=== PATIENT | female | born 1935 | race Caucasian/White ===

== ENCOUNTER 2018-03-24 12:59 | Emergency (ER) | payer BC ==
[2018-03-24 13:09] VITALS: TEMP 97.9; BMI 24.7
--- NOTE | 2018-03-24 16:16 | PDOC ---
Attending Attestation - Resident Resident Name: SiddharthamonieyuliyaBrijesh - ED Attending Attestation I have performed the following: I have examined & evaluated the patient, The case was reviewed & discussed with the resident, I agree w/resident's findings & plan, Exceptions are as noted - HPI HPI: 03/24/18 16:54 82yo female with diffuse abd pain that woke her up this AM that radiated to her back. Decreased PO intake, did have a hard BM today, denies assoc n/v, denies urinary complaintas. States low back pain. No rashes. No vaginal complaints. States the pain resolved, she ate a banana and it started again this afternoon. Last normal BM was last night. No f/c. No cp/sob. No leg swelling. No other complaints. - Physicial Exam PE: 03/24/18 16:56 Gen: aaox3, nad, speaking in full sentences Heent: EOMI, mmm heart: +s1s2 reg lungs: cta b/l abd: soft, mild LUQ ttp, no rebound or guarding, no cva ttp, no rashes, nondistended ext: no c/c/e, no calf ttp, ambulates with a steady giat back: no midline ttp, no stepoffs or deformities - Medical Decision Making 03/24/18 16:16 I, Dr. Aiyana Zuniga, DO, attest that this document has been prepared under my direction and personally reviewed by me in its entirety. I further attest, that it accurately reflects all work, treatment, procedures and medical decision -making performed by me. 03/24/18 16:58 a/p: 82yo female with 2 episodes of diffuse abd pain that radiates to her back -concern for pancreatitis vs colitis vs ishcemic colitis vs biliary colic vs renal colic -will send labs, ua, ct abd/pelvis -will give ivf hydration -will monitor and reassess -pt is nontoxic in appearance 03/24/18 18:20 pt with a UTI on labs - will start iv abx 03/24/18 20:12 ct without acute pathology UTI will give oral abx for d/c pt is nontoxic in appearance Heart Score/ECG Review - ECG Intrepretation Comment:: 03/24/18 16:40 sinus peterson at 57, nl axis, nl interval, no acute st/t wave findings
[2018-03-24] MEDS ORDERED: ACETAMINOPHEN 1000 MG/100 ML VIAL (NON FORMULARY) IVPB ONE (16:18)
[2018-03-24] MEDS ORDERED: ACETAMINOPHEN INJECTION 100 ML IVPB ONE (16:22)
[2018-03-24] MEDS ORDERED: SODIUM CHLORIDE 0.9% 1000 ML INFUS.BAG IV ONE (16:42)
[2018-03-24 16:57] LABS: BASO % 0.5 % (0-2.0); EOS % 0.8 % (0-4.5); HEMATOCRIT 39.6 % (32.4-45.2); LYMPH % 33.4 % (8-40); MCH 29.8 pg (25.7-33.7); MCHC 32.8 g/dl (32.0-36.0); MONO % 8.3 % (3.8-10.2); PLATELET COUNT 189 K/MM3 (134-434); RBC 4.36 M/mm3 (3.60-5.2); RDW 13.8 % (11.6-15.6); WHITE BLOOD COUNT 6.3 K/mm3 (4.0-10.0)
[2018-03-24 17:24] LABS: URINE APPEARANCE CLEAR; URINE BILIRUBIN NEGATIVE (<2.0 mg/dL); URINE COLOR STRAW; URINE GLUCOSE (UA) NEGATIVE (NEGATIVE); URINE KETONE TRACE (NEGATIVE); URINE NITRITE NEGATIVE (NEGATIVE); URINE PROTEIN NEGATIVE (NEGATIVE); URINE UROBILINOGEN NEGATIVE mg/dL (0.2-1.0)
[2018-03-24 17:25] LABS: URINE LEUK ESTERASE 3+ (NEGATIVE)
[2018-03-24 17:27] LABS: EPI CELLS RARE /HPF (FEW)
[2018-03-24 17:32] LABS: ALBUMIN 3.5 g/dl (3.4-5.0); ANION GAP 7 MMOL/L (8-16); BILIRUBIN,TOTAL 0.6 mg/dL (0.2-1.0); BLOOD UREA NITROGEN 17 mg/dL (7-18); CALCIUM 8.9 mg/dL (8.5-10.1); CHLORIDE 107 mmol/L (98-107); CO2 28 mmol/L (21-32); CREATININE 0.9 mg/dL (0.55-1.02); GLUCOSE,RANDOM 81 mg/dL (74-106); POTASSIUM 4.3 mmol/L (3.5-5.1); SGOT/AST 23 U/L (15-37); SGPT/ALT 21 U/L (12-78); SODIUM 142 mmol/L (136-145); TOT PROT 6.8 g/dl (6.4-8.2)
[2018-03-24 17:35] LABS: ALK PHOS 63 U/L (45-117)
[2018-03-24 17:42] LABS: MAGNESIUM 2.1 mg/dL (1.8-2.4)
--- NOTE | 2018-03-24 17:42 | PDOC ---
History of Present Illness - General Chief Complaint: Pain Stated Complaint: PCP SENT/STOMACH AND BACK PAIN Time Seen by Provider: 03/24/18 15:28 History Source: Patient Exam Limitations: No Limitations - History of Present Illness Initial Comments: 03/24/18 17:42 The patient is an 82F with a PMH of HLD who presents to the ER with complaints of abdominal pain. The patient states that she had a sudden onset sharp, diffuse , constant abdominal pain which radiates to her back without any exacerbating or alleviating factors. She denies fevers, dysuria, chills, vomiting but admits to mild nausea and SOB. She states this has never happened in the past. Past History - Past Medical History Allergies/Adverse Reactions: Allergies Allergy/AdvReac Type Severity Reaction Status Date / Time No Known Allergies Allergy Verified 05/25/14 21:20 Home Medications: Ambulatory Orders Ascorbic Acid [Vitamin C Oral Solution -] 0 mg PO DAILY 09/23/12 Cholecalciferol (Vitamin D3) [Vitamin D3] 0 unit PO DAILY 09/23/12 Cyanocobalamin [Vitamin B12 -] 0 mcg PO DAILY 09/23/12 Vitamin B Complex 1 each PO DAILY 09/23/12 Vitamin E Acid Succinate [Vitamin E] 0 unit PO DAILY 09/23/12 Aspirin Coated [Ecotrin -] 81 mg PO DAILY #0 tablet.ec 09/24/12 Unobtainable Home Med List 0 dose .ROUTE UTDICT 05/25/14 Atorvastatin Ca [Lipitor] 40 mg PO HS #30 tablet 05/26/14 Metoprolol Succinate [Toprol XL -] 25 mg PO DAILY #30 tab.sr.24h 05/26/14 Ranitidine [Zantac -] 150 mg PO DAILY #30 tablet 05/26/14 Cephalexin Monohydrate [Keflex -] 500 mg PO BID 7 Days #14 capsule 03/24/18 COPD: No Hypercholesterolemia: Yes - Immunization History Immunization Up to Date: Yes - Suicide/Smoking/Psychosocial Hx Smoking Status: No Smoking History: Never smoked Number of Cigarettes Smoked Daily: 0 Hx Alcohol Use: No Drug/Substance Use Hx: No Substance Use Type: None Review of Systems - Review of Systems Able to Perform ROS?: Yes Comments:: 03/24/18 18:01 GENERAL/CONSTITUTIONAL: No fever or chills. No weakness. HEAD, EYES, EARS, NOSE AND THROAT: No change in vision. No ear pain or discharge. No sore throat. CARDIOVASCULAR: No chest pain, palpitations, or lightheadedness. RESPIRATORY: Positive for shortness of breath. No cough, wheezing, or hemoptysis. GASTROINTESTINAL: Positive for nausea and abdominal pain. No vomiting, diarrhea , or constipation. GENITOURINARY: No dysuria, frequency, hematuria, or change in urination. MUSCULOSKELETAL: No joint or muscle swelling or pain. No neck or back pain. SKIN: No rash or lesions. NEUROLOGIC: No headache, numbness, tingling, focal weakness, loss of consciousness, or change in strength/sensation. ENDOCRINE: No increased thirst. No abnormal weight change. HEMATOLOGIC/LYMPHATIC: No anemia, easy bleeding, or history of blood clots. ALLERGIC/IMMUNOLOGIC: No hives or skin allergy. Is the patient limited Kazakh proficient: No *Physical Exam - Vital Signs Last Vital Signs Temp Pulse Resp BP Pulse Ox 97.9 F 74 18 152/67 100 03/24/18 13:06 03/24/18 13:06 03/24/18 13:06 03/24/18 13:06 03/24/18 13:06 - Physical Exam Comments: 03/24/18 18:10 GENERAL: Well developed, well nourished. Awake and alert. No acute distress. HEENT: Normocephalic, atraumatic. Hearing grossly normal. Moist mucous membranes. PERRLA, EOMI. No conjunctival pallor. Sclera are non-icteric. NECK: Supple. Full ROM. CARDIOVASCULAR: Regular rate and rhythm. No murmurs, rubs, or gallops. PULMONARY: No evidence of respiratory distress. Lungs clear to auscultation bilaterally. No wheezing, rales or rhonchi. ABDOMINAL: Soft. Diffusely tender, mostly in LUQ. Non-distended. No rebound or guarding. GENITOURINARY: No CVA tenderness bilaterally. MUSCULOSKELETAL: Normal range of motion at all joints. No bony deformities or tenderness. EXTREMITIES: No cyanosis. No clubbing. No edema. No calf tenderness or swelling. SKIN: Warm and dry. Normal capillary refill. No rashes. No jaundice. NEUROLOGICAL: Alert, awake, appropriate. Cranial nerves 2-12 intact. Normal speech. Gait is normal without ataxia. PSYCHIATRIC: Cooperative. Good eye contact. Appropriate mood and affect. Heart Score/ECG Review #1 ECG reviewed & interpreted by me at: 18:13 General ECG Interpretation: Sinus Rhythm, Normal Rate, Normal Intervals, No acute ischemic changes Compared to previous ECG there are: No significant change 03/24/18 18:13 Sinus peterson vent rate 55 MS 138 QRS 172 QTc 424 No STD or DIMAS No signs of acute ischemia ED Treatment Course - LABORATORY CBC & Chemistry Diagram: 03/24/18 16:35 03/24/18 16:35 - ADDITIONAL ORDERS Additional order review: Laboratory Results 03/24/18 03/24/18 03/24/18 17:10 16:35 16:35 Sodium 142 Potassium 4.3 Chloride 107 Carbon Dioxide 28 Anion Gap 7 L BUN 17 Creatinine 0.9 Creat Clearance w eGFR > 60 Random Glucose 81 Calcium 8.9 Total Bilirubin 0.6 AST 23 ALT 21 Alkaline Phosphatase 63 Creatine Kinase 118 Troponin I < 0.02 Total Protein 6.8 Albumin 3.5 Urine Color Straw Urine Appearance Clear Urine pH 6.0 Ur Specific [place] 1.011 Urine Protein Negative Urine Glucose (UA) Negative Urine Ketones Trace H Urine Blood Negative Urine Nitrite Negative Urine Bilirubin Negative Urine Urobilinogen Negative Ur Leukocyte Esterase 3+ H Urine WBC (Auto) 4 Urine RBC (Auto) <1 Ur Epithelial Cells Rare Anti-A Titer Cancelled Blood Type Cancelled Antibody Screen Cancelled 03/24/18 16:35 RBC 4.36 MCV 91.0 MCHC 32.8 RDW 13.8 MPV 9.0 Neutrophils % 57.0 Lymphocytes % 33.4 Monocytes % 8.3 Eosinophils % 0.8 Basophils % 0.5 - RADIOLOGY Radiology Studies Ordered: Category Date Time Status ABDOMEN & PELVIS CT W/O CONTR [CT] Stat CT Scan 03/24/18 16:17 Ordered CHEST X-RAY PORTABLE* [RAD] Stat Radiology 03/24/18 16:17 Completed - Medications Given in the ED: ED Medications Discontinued Medications Generic Name Dose Route Start Last Admin Trade Name Freq PRN Reason Stop Dose Admin Acetaminophen 1,000 mg 03/24/18 16:18 03/24/18 17:22 Ofirmev Injection - IVPB 03/24/18 16:19 1,000 mg ONCE ONE Administration Sodium Chloride 1,000 ml 03/24/18 16:42 03/24/18 17:22 Normal Saline - IV 03/24/18 16:43 1,000 ml ONCE ONE Administration Medical Decision Making - Medical Decision Making 03/24/18 18:13 The patient is an 82F with a PMH of HLD who presents to the ER with complaints of abdominal pain. UA indicates UTI. Giving ceftriaxone. Pending CT to r/o nephric abscess vs other abdominal pathology. 03/24/18 18:58 I have endorsed the patient to Dr. Tatum for further care. *DC/Admit/Observation/Transfer Diagnosis at time of Disposition: UTI (urinary tract infection) - Discharge Dispostion Disposition: HOME Condition at time of disposition: Stable - Prescriptions Prescriptions: Cephalexin Monohydrate [Keflex -] 500 mg PO BID 7 Days #14 capsule - Referrals Referrals: Beto Gomez [Non Staff, Medical] - - Patient Instructions Printed Discharge Instructions: DI for Urinary Tract Infection (UTI) Additional Instructions: You were seen today in the Emergency Department for a urinary tract infection. You were given one dose of antibiotics here and prescribed antibiotics to the pharmacy that you specified. Please review the handouts provided at discharge. Please follow up with your primary care physician within the next 1-3 days. Return to the Emergency Department if you develop fevers, worsening symptoms, or new concerning symptoms. - Post Discharge Activity
[2018-03-24] MEDS ORDERED: CEFTRIAXONE 1,000 MG in DEXTROSE 5%-WATER - 50 ML IVPB ONE (17:48)
[2018-03-24] MEDS ORDERED: CEFTRIAXONE 1 GM/50 ML BAG ONE (18:54)
--- NOTE | 2018-03-24 19:05 | PDOC ---
*Physical Exam - Vital Signs Last Vital Signs Temp Pulse Resp BP Pulse Ox 97.9 F 74 18 152/67 100 03/24/18 13:06 03/24/18 13:06 03/24/18 13:06 03/24/18 13:06 03/24/18 13:06 - Physical Exam Comments: GENERAL: Awake, alert, and fully oriented, in no acute distress HEAD: No signs of trauma, normocephalic, atraumatic EYES: PERRL, EOMI, sclera anicteric, conjunctiva clear ENT: Hearing grossly normal, nares patent, oropharynx clear without exudates. Moist mucos NECK: Normal ROM, supple, no lymphadenopathy LUNGS: No distress, speaks full sentences, clear to auscultation bilaterally HEART:Regular rate and rhythm, normal S1 and S2, no murmurs appreciated, peripheral pulses normal and equal bilaterally ABDOMEN: Soft, mild diffuse TTP without rebound or guarding EXTREMITIES : Normal inspection, Normal range of motion, no edema. No clubbing or cyanosis NEUROLOGICAL: Cranial nerves II through XII grossly intact. Normal speech, no focal sensorimotor deficits SKIN: Warm, Dry, normal turgor, no rashes or lesions noted 03/24/18 19:10 ED Treatment Course - LABORATORY CBC & Chemistry Diagram: 03/24/18 16:35 03/24/18 16:35 - ADDITIONAL ORDERS Additional order review: Laboratory Results 03/24/18 03/24/18 03/24/18 17:10 16:53 16:35 Sodium Potassium Chloride Carbon Dioxide Anion Gap BUN Creatinine Creat Clearance w eGFR Random Glucose Lactic Acid 0.9 Calcium Magnesium 2.1 Total Bilirubin AST ALT Alkaline Phosphatase Creatine Kinase Troponin I Total Protein Albumin Lipase 51 L Urine Color Straw Urine Appearance Clear Urine pH 6.0 Ur Specific [place] 1.011 Urine Protein Negative Urine Glucose (UA) Negative Urine Ketones Trace H Urine Blood Negative Urine Nitrite Negative Urine Bilirubin Negative Urine Urobilinogen Negative Ur Leukocyte Esterase 3+ H Urine WBC (Auto) 4 Urine RBC (Auto) <1 Ur Epithelial Cells Rare Anti-A Titer Blood Type Antibody Screen 03/24/18 03/24/18 16:35 16:35 Sodium 142 Potassium 4.3 Chloride 107 Carbon Dioxide 28 Anion Gap 7 L BUN 17 Creatinine 0.9 Creat Clearance w eGFR > 60 Random Glucose 81 Lactic Acid Calcium 8.9 Magnesium Total Bilirubin 0.6 AST 23 ALT 21 Alkaline Phosphatase 63 Creatine Kinase 118 Troponin I < 0.02 Total Protein 6.8 Albumin 3.5 Lipase Urine Color Urine Appearance Urine pH Ur Specific [place] Urine Protein Urine Glucose (UA) Urine Ketones Urine Blood Urine Nitrite Urine Bilirubin Urine Urobilinogen Ur Leukocyte Esterase Urine WBC (Auto) Urine RBC (Auto) Ur Epithelial Cells Anti-A Titer Cancelled Blood Type Cancelled Antibody Screen Cancelled 03/24/18 16:35 RBC 4.36 MCV 91.0 MCHC 32.8 RDW 13.8 MPV 9.0 Neutrophils % 57.0 Lymphocytes % 33.4 Monocytes % 8.3 Eosinophils % 0.8 Basophils % 0.5 - Medications Given in the ED: ED Medications Discontinued Medications Generic Name Dose Route Start Last Admin Trade Name Freq PRN Reason Stop Dose Admin Acetaminophen 1,000 mg 03/24/18 16:18 03/24/18 17:22 Ofirmev Injection - IVPB 03/24/18 16:19 1,000 mg ONCE ONE Administration Ceftriaxone Sodium 1,000 mg/ 50 mls @ 100 mls/hr 03/24/18 17:48 03/24/18 19: 01 Dextrose IVPB 03/24/18 18:17 100 mls/hr ONCE ONE Administration Sodium Chloride 1,000 ml 03/24/18 16:42 03/24/18 17:22 Normal Saline - IV 03/24/18 16:43 1,000 ml ONCE ONE Administration Medical Decision Making - Medical Decision Making I have assumed care of the patient from Dr. Levine, who has discussed the clinical presentation, work-up, and ED course thus far. I have reviewed the patients medical record and ED course and agree with all aspects of care thus far. ED Course Patient with UA significant for UTI, LE 3+. S/p Ceftriaxone IV once Dispo pending CT 03/24/18 19:04 CT Abdomen & Pelvis without evidence of acute pathology Plan for DC w/ Keflex 500mg PO BID for 7 days and PCP f/u Plan discussed with patient who is in agreement and verbalized understanding Dispo: home w/ PCP f/u 03/24/18 20:20 *DC/Admit/Observation/Transfer Diagnosis at time of Disposition: UTI (urinary tract infection) Qualifiers: Urinary tract infection type: acute cystitis Hematuria presence: without hematuria Qualified Code(s): N30.00 - Acute cystitis without hematuria - Discharge Dispostion Disposition: HOME Condition at time of disposition: Stable Decision to Admit order: No - Prescriptions Prescriptions: Cephalexin Monohydrate [Keflex -] 500 mg PO BID 7 Days #14 capsule - Referrals Referrals: Beto Gomez [Non Staff, Medical] - - Patient Instructions Printed Discharge Instructions: DI for Urinary Tract Infection (UTI) Additional Instructions: You were seen today in the Emergency Department for a urinary tract infection. You were given one dose of antibiotics here and prescribed antibiotics to the pharmacy that you specified. Please review the handouts provided at discharge. Please follow up with your primary care physician within the next 1-3 days. Return to the Emergency Department if you develop fevers, worsening symptoms, or new concerning symptoms. - Post Discharge Activity
[2018-03-24 21:47] VITALS: BP 132/68; PULSE 76
--- NOTE | 2018-03-25 15:40 | EKG ---
Test Reason : Blood Pressure : / mmHG Vent. Rate : 057 BPM Atrial Rate : 057 BPM P-R Int : 138 ms QRS Dur : 072 ms QT Int : 436 ms P-R-T Axes : 047 054 061 degrees QTc Int : 424 ms SINUS BRADYCARDIA OTHERWISE NORMAL ECG WHEN COMPARED WITH ECG OF 25-MAY-2014 21:44, ABERRANT CONDUCTION IS NO LONGER PRESENT Confirmed by AYSHA BUSTILLO MD ([id number]) on 03/25/2018 3:40:08 PM Referred By: Confirmed By:AYSHA BUSTILLO MD
== END 2018-03-24 20:33 | disposition home or self-care (01) ==
LOC: JER 12:59
PROC: 3E0337Z Introduction of Electrolytic and Water Balance Substance into Peripheral Vein, Percutaneous Approach (ICD-10-PCS; principal; 2018-03-24)
PROC: 3E033NZ Introduction of Analgesics, Hypnotics, Sedatives into Peripheral Vein, Percutaneous Approach (ICD-10-PCS; 2018-03-24)
PROC: 3E03329 Introduction of Other Anti-infective into Peripheral Vein, Percutaneous Approach (ICD-10-PCS; 2018-03-24)
DX: N30.00 Acute cystitis without hematuria (principal)
CPT/HCPCS: 36415; 71045-TC-FY; 74176-TC; 80053; 81003; 81015; 82550; 83605; 83690; 83735; 84484; 85025; 87086; 93005; 93010; 96365; 96375; 99283-25; J0131; J7030

== ENCOUNTER 2019-01-18 12:54 | Emergency (ER) | payer BC ==
[2019-01-18 13:10] VITALS: BP 126/75; PULSE 90; TEMP 97.8; BMI 23.8
--- NOTE | 2019-01-18 13:35 | PDOC ---
History of Present Illness - General Chief Complaint: Pain, Acute Stated Complaint: LT SHOULDER PAIN Time Seen by Provider: 01/18/19 13:29 History Source: Patient Exam Limitations: No Limitations - History of Present Illness Initial Comments: 01/18/19 13:36 on and off for months and pain is progressively worsened since that time. States helps care for 1-year-old grandchildren and pain is progressively worsened since they have gotten bigger. Was concerned had some problems with the bones and saw her PMD, Dr. Travis who sent her to the emergency department for x-rays. Patient denies any significant trAmma or exercise changes. Denies fever, swelling, or any neurologic changes. Has taken ibuprofen With good resolved 01/18/19 14:24 01/18/19 14:26 Occurred: reports: other Severity: reports: mild, moderate Pain Location: reports: pelvis (and left hip), upper extremity (left posterior shoulder ) Loss of Consciousness: no loss of consciousness Associated Symptoms (Fall): denies symptoms Past History - Travel Traveled outside of the country in the last 30 days: No Close contact w/someone who was outside of country & ill: No - Past Medical History Allergies/Adverse Reactions: Allergies Allergy/AdvReac Type Severity Reaction Status Date / Time No Known Allergies Allergy Verified 01/18/19 13:10 Home Medications: Ambulatory Orders Atorvastatin Ca [Lipitor] 40 mg PO HS #30 tablet 05/26/14 Acetaminophen 1,000 mg PO Q6H PRN #30 tablet 01/18/19 COPD: No Hypercholesterolemia: Yes - Immunization History Immunization Up to Date: Yes - Suicide/Smoking/Psychosocial Hx Smoking Status: No Smoking History: Never smoked Number of Cigarettes Smoked Daily: 0 Hx Alcohol Use: No Drug/Substance Use Hx: No Substance Use Type: None Review of Systems - Review of Systems Able to Perform ROS?: Yes Is the patient limited Bengali proficient: Yes Constitutional: Yes: Symptoms Reported, See HPI, Malaise HEENTM: Yes: See HPI. No: Symptoms Reported Respiratory: No: See HPI, Cough, Shortness of Breath, Wheezing Musculoskeletal: Yes: Symptoms Reported, See HPI, Muscle Pain. No: Back Pain, Joint Pain, Joint Swelling All Other Systems: Reviewed and Negative *Physical Exam - Vital Signs Last Vital Signs Temp Pulse Resp BP Pulse Ox 97.8 F 90 18 126/75 100 01/18/19 13:08 01/18/19 13:08 01/18/19 13:08 01/18/19 13:08 01/18/19 13:08 - Physical Exam General Appearance: Yes: Nourished, Appropriately Dressed. No: Apparent Distress HEENT: positive: SIM, Normal ENT Inspection, TMs Normal, Pharynx Normal Neck: positive: Supple. negative: Tender Respiratory/Chest: positive: Lungs Clear, Normal Breath Sounds Musculoskeletal: positive: Normal Inspection, Muscle Spasm (mild tight musculature to the paravertebral spinous muscles of upper back/trapezius muscles. Has no true bone tenderness, crepitus or step-offs. No skin changes or rashes noted.). negative: CVA Tenderness Extremity: positive: Normal Capillary Refill, Normal Inspection, Normal Range of Motion (ambulatory without unsteadiness). negative: Tender (ambulatory without unsteadiness or limp,) Integumentary: positive: Normal Color, Dry, Warm. 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, Fully Oriented, Alert, Normal Mood/ Affect, Normal Response, Motor Strength 5/5 Progress Note - Progress Note Progress Note: Mild osteoarthritic pain and x-rays negative for fractures dislocations or deformities *DC/Admit/Observation/Transfer Diagnosis at time of Disposition: Hip pain, left - Discharge Dispostion Disposition: HOME Condition at time of disposition: Stable Decision to Admit order: No - Prescriptions Prescriptions: Acetaminophen 1,000 mg PO Q6H PRN #30 tablet PRN Reason: Pain - Referrals Referrals: Jun Cross MD [Staff Physician] - - Patient Instructions Printed Discharge Instructions: DI for Hip Pain, DI for Muscle Strain Additional Instructions: Rest, ice to area on and off for 15 minutes 4-6 times a day Avoid heavy lifting or exercise until pain and swelling is resolved or until further directed Keep area highly elevated to reduce swelling Use splints/James wrap as directed Followup with orthopedist in one to 2 days if not improving, if significantly improved may wait one week for followup with orthopedist May use ibuprofen or Tylenol every 6 hours as needed for pain - Post Discharge Activity
== END 2019-01-18 14:25 | disposition home or self-care (01) ==
LOC: JERFT 12:54
DX: M25.551 Pain in right hip (principal)
CPT/HCPCS: 73030-TC-LT-FY; 73523-TC-FY; 99281-25

== ENCOUNTER 2019-09-05 11:19 | Emergency (ER) | payer BC ==
[2019-09-05 11:37] VITALS: BP 158/72; PULSE 81; TEMP 98; BMI 21.9
[2019-09-05] MEDS ORDERED: SODIUM CHLORIDE 1,000 ML IV STA (13:17)
[2019-09-05 13:54] LABS: BASO % 0.6 % (0-2.0); EOS % 1.2 % (0-4.5); HEMATOCRIT 36.2 % (32.4-45.2); HEMOGLOBIN 11.9 GM/dL (10.7-15.3); LYMPH % 32.2 % (8-40); MCH 30.5 pg (25.7-33.7); MCHC 32.9 g/dl (32.0-36.0); MEAN CELL VOLUME 92.5 fl (80-96); MEAN PLT VOLUME 8.8 fl (7.5-11.1); MONO % 8.2 % (3.8-10.2); NEUT % 57.8 % (42.8-82.8); PLATELET COUNT 203 K/MM3 (134-434); RBC 3.92 M/mm3 (3.60-5.2); RDW 13.9 % (11.6-15.6); WHITE BLOOD COUNT 6.8 K/mm3 (4.0-10.0)
[2019-09-05 14:23] LABS: ALBUMIN 3.6 g/dl (3.4-5.0); BILIRUBIN,TOTAL 0.5 mg/dL (0.2-1); BLOOD UREA NITROGEN 18.2 mg/dL (7-18); CALCIUM 9.5 mg/dL (8.5-10.1); CREATININE 0.9 mg/dL (0.55-1.3); POTASSIUM 3.9 mmol/L (3.5-5.1); TOT PROT 6.6 g/dl (6.4-8.2)
--- NOTE | 2019-09-05 15:02 | PDOC ---
History of Present Illness - General History Source: Patient Exam Limitations: No Limitations - History of Present Illness Initial Comments: 09/05/19 15:00 Patient is an 83-year-old female who presents to the ED with complaint of left flank pain that started yesterday. She states she has always had low back pain for many years but this was different. She states that the pain was so bad that she was unable to sleep. She tried using a heating pad which did not help. She has a history of high cholesterol but otherwise is healthy. She has no allergies to medications. She denies any vomiting or diarrhea. She has not taken anything for her pain. She denies any dysuria or hematuria. <Carol Ann Fischer - Last Filed: 09/05/19 17:10> <Robel De La Torre - Last Filed: 09/08/19 17:24> - General Chief Complaint: Pain Stated Complaint: SENT BY PCP Time Seen by Provider: 09/05/19 13:11 Past History - Past Medical History COPD: No Hypercholesterolemia: Yes - Immunization History Immunization Up to Date: Yes - Psycho Social/Smoking Cessation Hx Smoking Status: No Smoking History: Never smoked Number of Cigarettes Smoked Daily: 0 Hx Alcohol Use: No Drug/Substance Use Hx: No Substance Use Type: None <Carol Ann Fischer - Last Filed: 09/05/19 17:10> <Robel De La Torre - Last Filed: 09/08/19 17:24> - Past Medical History Allergies/Adverse Reactions: Allergies Allergy/AdvReac Type Severity Reaction Status Date / Time No Known Allergies Allergy Verified 09/05/19 11:37 Home Medications: Ambulatory Orders Atorvastatin Ca [Lipitor] 40 mg PO HS #30 tablet 05/26/14 Acetaminophen 1,000 mg PO Q6H PRN #30 tablet 01/18/19 Review of Systems - Review of Systems Comments:: 09/05/19 15:00 - Review of Systems Able to Perform ROS?: Yes Constitutional: No: Fever, Chills, Loss of Appetite, Night Sweats, Weakness HEENTM: No: Eye Pain, Vision changes, Ear Pain, Throat Pain, Throat Swelling, Mouth Pain, Difficulty Swallowing Respiratory: No: Cough, Shortness of Breath, Wheezing, Sputum Production Cardiac (ROS): No: Chest Pain, Chest Tightness, Palpitations, Irregular Heart Beat, Edema ABD/GI: No: Nausea, Vomiting, Abdominal Pain, Diarrhea; positive right flank pain : No Dysuria, No Hematuria, No Frequency, No Urgency, No Vaginal Discharge/ Pain Musculoskeletal: No: Muscle Pain, Back Pain, Joint Pain, Muscle Weakness, Neck Pain Integumentary: No: Lesions, Rash Neurological: No: Headache, Numbness, Tingling, Weakness, Speech Difficulties <Amado,Carol Ann D - Last Filed: 09/05/19 17:10> *Physical Exam - Vital Signs Last Vital Signs Temp Pulse Resp BP Pulse Ox 98 F 81 18 158/72 98 09/05/19 11:33 09/05/19 11:33 09/05/19 11:33 09/05/19 11:33 09/05/19 11:33 - Physical Exam 09/05/19 15:01 - Physical Exam General Appearance: Nourished, Appropriately Dressed, No Distress HEENT: EOMI, Normal Voice, No Muffled/Hoarse voice, No Nasal Congestion, No Rhinorrhea, Hearing Grossly Normal, TMs Normal Neck: Supple, No Lymphadenopathy (R), No Lymphadenopathy (L), No Rigidity, No Decreased range of motion Respiratory/Chest: Lungs Clear, Normal Breath Sounds. No Respiratory Distress, No Accessory Muscle Use Cardiovascular: Regular Rhythm, Regular Rate, S1, S2 Gastrointestinal/Abdominal: Normal Bowel Sounds, Soft. No Guarding, No Rebound, No Rigidity; moderate suprapubic tenderness to palpation with left CVA tenderness to palpation. Musculoskeletal: Normal Inspection. No Decreased Range of Motion Extremity: Normal Capillary Refill, Normal Inspection Integumentary: Normal Color, Dry. No Rash Neurologic: t rail turner II-XII NML intact, Fully Oriented, Alert, Normal Mood/Affect, Normal Response <Amado,Carol Ann D - Last Filed: 09/05/19 17:10> - Vital Signs Last Vital Signs Temp Pulse Resp BP Pulse Ox 98 F 81 18 158/72 98 09/05/19 11:33 09/05/19 11:33 09/05/19 11:33 09/05/19 11:33 09/05/19 11:33 <BrittKevinRobel - Last Filed: 09/08/19 17:24> ED Treatment Course - LABORATORY CBC & Chemistry Diagram: 09/05/19 13:40 09/05/19 13:40 - ADDITIONAL ORDERS Additional order review: Laboratory Results 09/05/19 13:40 Sodium 143 Potassium 3.9 Chloride 109 H Carbon Dioxide 27 Anion Gap 7 L BUN 18.2 H Creatinine 0.9 Est GFR (CKD-EPI)AfAm 69.01 Est GFR (CKD-EPI)NonAf 59.55 Random Glucose 92 Calcium 9.5 Total Bilirubin 0.5 AST 18 ALT 19 Alkaline Phosphatase 67 Total Protein 6.6 Albumin 3.6 Lipase 30 L 09/05/19 13:40 RBC 3.92 MCV 92.5 MCHC 32.9 RDW 13.9 MPV 8.8 Neutrophils % 57.8 Lymphocytes % 32.2 Monocytes % 8.2 Eosinophils % 1.2 Basophils % 0.6 - RADIOLOGY Radiology Studies Ordered: Category Date Time Status ABDOMEN & PELVIS CT W/O CONTR [CT] Stat CT Scan 09/05/19 13:17 Taken - Medications Given in the ED: ED Medications Discontinued Medications Generic Name Dose Route Start Last Admin Trade Name Freq PRN Reason Stop Dose Admin Sodium Chloride 1,000 mls @ 1,000 mls/hr 09/05/19 13:17 09/05/19 13:47 Normal Saline - IV 09/05/19 14:16 1,000 mls/hr ASDIR STA Administration <Carol Ann Fischer D - Last Filed: 09/05/19 17:10> - LABORATORY CBC & Chemistry Diagram: 09/05/19 13:40 09/05/19 13:40 - ADDITIONAL ORDERS Additional order review: 09/05/19 16:00 Urine Culture - Final Urine - Urine Clean Catch Lactose Fermenting Neg Bacilli 09/05/19 13:40 RBC 3.92 MCV 92.5 MCHC 32.9 RDW 13.9 MPV 8.8 Neutrophils % 57.8 Lymphocytes % 32.2 Monocytes % 8.2 Eosinophils % 1.2 Basophils % 0.6 - Medications Given in the ED: ED Medications Discontinued Medications Generic Name Dose Route Start Last Admin Trade Name Freq PRN Reason Stop Dose Admin Sodium Chloride 1,000 mls @ 1,000 mls/hr 09/05/19 13:17 09/05/19 13:47 Normal Saline - IV 09/05/19 14:16 1,000 mls/hr ASDIR STA Administration <Robel De La Torre - Last Filed: 09/08/19 17:24> Medical Decision Making - Medical Decision Making 09/05/19 15:01 Assessment: Patient is an 83-year-old female with suprapubic and left flank pain. Plan: -Labs ordered -CT scan ordered -Will reassess 09/05/19 16:[address] scan do not show any acute pathology. The patient has been made aware that her studies show some renal cysts and an adrenal gland cyst as well as diverticulosis. She should follow-up with her primary doctor for further evaluation of this. She does not require any further evaluation from the emergency department. Her urine does not show any acute UTI but we will follow the urine culture. She understands and agrees with this treatment plan and the patient is stable for discharge <Carol Ann Fischer - Last Filed: 09/05/19 17:10> - Medical Decision Making The patient was seen and evaluated in conjunction with RAFAEL Fischer under my direct supervision, ancillary studies were reviewed. I agree with the plan as outlined by RAFAEL Fischer <Robel De La Torre - Last Filed: 09/08/19 17:24> Discharge - Discharge Information Problems reviewed: Yes <Carol Ann Fischer - Last Filed: 09/05/19 17:10> <Robel De La Torre - Last Filed: 09/08/19 17:24> - Discharge Information Clinical Impression/Diagnosis: Left flank pain Condition: Stable Disposition: HOME - Follow up/Referral Referrals: Mat Saha MD [Primary Care Provider] - - Patient Discharge Instructions Patient Printed Discharge Instructions: DI for Flank Pain Additional Instructions: Get plenty of rest and drink plenty of fluids. Be sure to see your primary doctor within 2 days for repeat evaluation. Take Tylenol for your pain. Return to the ER for high fevers, shaking chills, severe pain, numbness, tingling or any other worsening symptoms. - Post Discharge Activity
[2019-09-05 16:36] LABS: EPI CELLS 2.5 /HPF (0-5/HPF); HYALINE CASTS 2 /lpf (0-8); URINE APPEARANCE CLEAR; URINE BACTERIA 19.8 /hpf (NEGATIVE); URINE BILIRUBIN NEGATIVE (NEGATIVE); URINE COLOR YELLOW; URINE GLUCOSE (UA) NEGATIVE (NEGATIVE); URINE KETONE NEGATIVE (NEGATIVE); URINE LEUK ESTERASE 1+ (NEGATIVE); URINE NITRITE NEGATIVE (NEGATIVE); URINE PROTEIN NEGATIVE (NEGATIVE); URINE RBC 1 /hpf (0-4); URINE UROBILINOGEN 0.2 mg/dL (0.2-1.0); URINE WBC 3 /hpf (0-5)
== END 2019-09-05 17:28 | disposition home or self-care (01) ==
LOC: JER 11:19
PROC: 3E0337Z Introduction of Electrolytic and Water Balance Substance into Peripheral Vein, Percutaneous Approach (ICD-10-PCS; principal; 2019-09-05)
DX: R10.32 Left lower quadrant pain (principal); E78.00 Pure hypercholesterolemia, unspecified
CPT/HCPCS: 36415; 74176-TC; 80053; 81003; 83690; 85025; 87086; 96360; 99285-25; J7030

== ENCOUNTER 2020-04-24 12:19 | Emergency (ER) | payer BC, OTHER ==
[2020-04-24 12:27] VITALS: BP 146/80; PULSE 92; TEMP 99.1; BMI 20.1
--- NOTE | 2020-04-24 12:29 | PDOC ---
Rapid Medical Evaluation Time Seen by Provider: 04/24/20 12:22 Medical Evaluation: Allergies Allergy/AdvReac Type Severity Reaction Status Date / Time No Known Allergies Allergy Verified 09/05/19 11:37 04/24/20 12:23 84 year old female pmhx HLD s/p fall on left shoulder 1 week ago pain getting worse and worse. Sent by urgent care PE: TTP to L anterior shoulder girdle, with eccymosis to L arm Plan: Imaging differed to provider Pt to precede to ED for further eval
--- NOTE | 2020-04-24 13:03 | PDOC ---
History of Present Illness - General Chief Complaint: Injury Stated Complaint: FALL Time Seen by Provider: 04/24/20 12:22 - History of Present Illness Initial Comments: 04/24/20 12:47 84-year-old female presents for evaluation of left shoulder pain after a fall 2 weeks ago increasing pain and limited motion since the fall. Past History - Medical History Allergies/Adverse Reactions: Allergies Allergy/AdvReac Type Severity Reaction Status Date / Time No Known Allergies Allergy Verified 04/24/20 12:23 Home Medications: Ambulatory Orders Atorvastatin Ca [Lipitor] 40 mg PO HS #30 tablet 05/26/14 Acetaminophen 1,000 mg PO Q6H PRN #30 tablet 01/18/19 COPD: No Hypercholesterolemia: Yes - Immunization History Immunization Up to Date: Yes - Psycho-Social/Smoking History Smoking Status: No Smoking History: Never smoked Have you smoked in the past 12 months: No Number of Cigarettes Smoked Daily: 0 - Substance Abuse Hx (Audit-C & DAST Scrn) How often the patient has a drink containing alcohol: Never Score: In Men: 4 or > Positive; In Women: 3 or > Positive: 0 Screen Result (Pos requires Nsg. Audit-10AR): Negative In the last yr the pt used illegal drug/Rx for NonMed reason: No Score: Yes response is considered Positive: 0 Screen Result (Positive result requires Nsg. DAST-10): Negative Review of Systems - Review of Systems Musculoskeletal: Yes: Joint Pain *Physical Exam - Vital Signs Last Vital Signs Temp Pulse Resp BP Pulse Ox 99.1 F 92 H 18 146/80 100 04/24/20 12:23 04/24/20 12:23 04/24/20 12:23 04/24/20 12:23 04/24/20 12:23 - Physical Exam 04/24/20 13:03 Left shoulder range of motion is limited. No pain with internal and external rotation pain with active abduction hikes her shoulder with abduction maneuvers unable to tolerate strength testing or impingement maneuvers neurovascular intact. Medical Decision Making - Medical Decision Making 04/24/20 13:04 Most likely capsulitis or rotator cuff tear will have patient follow-up with orthopedic surgery. Discharge - Discharge Information Problems reviewed: Yes Clinical Impression/Diagnosis: Contusion of left shoulder, Left shoulder strain, Capsulitis of left shoulder Condition: Stable Disposition: HOME - Admission No - Follow up/Referral Referrals: Mat Saha MD [Primary Care Provider] - Onesimo Olivera DO [Staff Physician] - - Patient Discharge Instructions Additional Instructions: Tylenol as directed for pain.Return to the emergency room for worsening symptoms. Without fail follow-up with orthopedic surgery in 2 to 3 days for further evaluation and treatment options. - Post Discharge Activity
== END 2020-04-24 13:17 | disposition home or self-care (01) ==
LOC: JERFT 12:19
DX: S40.012A Contusion of left shoulder, initial encounter (principal); S46.012A Strain of muscle(s) and tendon(s) of the rotator cuff of left shoulder, initial encounter; M75.02 Adhesive capsulitis of left shoulder
CPT/HCPCS: 99283-25

== ENCOUNTER 2022-10-05 10:52 | Observation (INO) | payer BC, OTHER ==
[2022-10-05 12:13] LABS: BASO % 0.5 % (0-2.0); HEMATOCRIT 32.3 % (32.4-45.2); HEMOGLOBIN 10.7 GM/dL (10.7-15.3); LYMPH % 18.1 % (8-40); MCH 29.8 pg (25.7-33.7); MCHC 33.2 g/dl (32.0-36.0); MEAN CELL VOLUME 89.7 fl (80-96); MEAN PLT VOLUME 9.5 fl (7.5-11.1); MONO % 4.1 % (3.8-10.2); NEUT % 76.3 % (42.8-82.8); PLATELET COUNT 100 10^3/uL (134-434); RDW 14.3 % (11.6-15.6); WHITE BLOOD COUNT 7.4 K/mm3 (4.0-10.0)
[2022-10-05] MEDS ORDERED: morphine CARPU-JECT 4 MG/1 ML DISP.SYRIN IVPUSH ONE (12:18)
[2022-10-05] MEDS ORDERED: morphine SULFATE 4 MG/ML VIAL ONE (12:29)
[2022-10-05 12:37] LABS: ALBUMIN 3.3 g/dl (3.4-5.0); BLOOD UREA NITROGEN 26.4 mg/dL (7-18); CALCIUM 9.1 mg/dL (8.5-10.1); MAGNESIUM 2.3 mg/dL (1.8-2.4)
[2022-10-05 12:40] LABS: CREATININE 1.2 mg/dL (0.55-1.3)
[2022-10-05 12:43] LABS: BILIRUBIN,TOTAL 0.3 mg/dL (0.2-1); TOT PROT 6.2 g/dl (6.4-8.2)
[2022-10-05] MEDS ORDERED: SODIUM CHLORIDE 0.9% 500 ML INFUS.BAG IV ONE (12:48)
[2022-10-05] MEDS ORDERED: fentaNYL CITRATE 250 MCG/5 ML VIAL ONE ×2 (14:21→15:46)
[2022-10-05 14:53] LABS: EPI CELLS 11 /uL (0-25.1); HYALINE CASTS 0 /uL (0-3.1); URINE APPEARANCE CLEAR; URINE BACTERIA 98 /uL (0-1359); URINE BILIRUBIN NEGATIVE (NEGATIVE); URINE COLOR YELLOW; URINE GLUCOSE (UA) NEGATIVE (NEGATIVE); URINE KETONE NEGATIVE (NEGATIVE); URINE LEUK ESTERASE TRACE (NEGATIVE); URINE NITRITE NEGATIVE (NEGATIVE); URINE PROTEIN NEGATIVE (NEGATIVE); URINE RBC 23 /uL (0-23.9); URINE UROBILINOGEN 0.2 mg/dL (0.2-1.0); URINE WBC 20 /uL (0-25.8)
[2022-10-05] MEDS ORDERED: LACTATED RINGERS SOLUTION 1,000 ML IV SCH (17:45)
[2022-10-05] MEDS ORDERED: ACETAMINOPHEN 325 MG TABLET (FP) ONE (18:16)
[2022-10-05] MEDS: ACETAMINOPHEN 325 MG TABLET (FP) PO SCH ×2 (18:25→22:08)
[2022-10-05] MEDS: ATORVASTATIN CA 80 MG TABLET (FP) PO SCH (22:08)
[2022-10-06] MEDS: KETOROLAC TROMETHAMINE 15 MG/ML VIAL IVPUSH PRN ×3 (02:05→18:49)
[2022-10-06] MEDS: ACETAMINOPHEN 325 MG TABLET (FP) PO SCH ×6 (03:27→22:18)
[2022-10-06 05:04] VITALS: BMI 21.9
[2022-10-06 08:32] LABS: INR 0.99 (0.83-1.09); PROTHROMBIN TIME (PATIENT) 11.5 SEC (9.7-13.0)
[2022-10-06 08:53] LABS: ALBUMIN 2.7 g/dl (3.4-5.0); CALCIUM 8.1 mg/dL (8.5-10.1); MAGNESIUM 1.9 mg/dL (1.8-2.4)
[2022-10-06 08:54] LABS: BLOOD UREA NITROGEN 23.6 mg/dL (7-18)
[2022-10-06 08:56] LABS: CREATININE 1.2 mg/dL (0.55-1.3)
[2022-10-06 08:58] LABS: BASO % 0.6 % (0-2.0); BILIRUBIN,TOTAL 0.3 mg/dL (0.2-1); EOS % 3.3 % (0-4.5); HEMOGLOBIN 10.5 GM/dL (10.7-15.3); LYMPH % 27.4 % (8-40); MCH 30.2 pg (25.7-33.7); MCHC 33.7 g/dl (32.0-36.0); MEAN CELL VOLUME 89.6 fl (80-96); MEAN PLT VOLUME 9.5 fl (7.5-11.1); MONO % 7.4 % (3.8-10.2); NEUT % 61.3 % (42.8-82.8); PHOSPHOROUS 3.4 mg/dL (2.5-4.9); PLATELET COUNT 175 10^3/uL (134-434); RBC 3.46 M/mm3 (3.60-5.2); TOT PROT 5.4 g/dl (6.4-8.2); WHITE BLOOD COUNT 7.1 K/mm3 (4.0-10.0)
[2022-10-06] MEDS: ENOXAPARIN NA (PORCINE) 30 MG/0.3 ML DISP.SYRIN SQ SCH (09:33)
[2022-10-06] MEDS: ATORVASTATIN CA 80 MG TABLET (FP) PO SCH (22:19)
[2022-10-07] MEDS: ACETAMINOPHEN 325 MG TABLET (FP) PO SCH ×8 (01:49→21:28)
[2022-10-07] MEDS: oxyCODONE HCL 5 MG TABLET PO SCH ×3 (07:40→21:27)
[2022-10-07 10:00] LABS: HEMATOCRIT 35.6 % (32.4-45.2); HEMOGLOBIN 11.9 GM/dL (10.7-15.3); MCH 29.9 pg (25.7-33.7); MCHC 33.4 g/dl (32.0-36.0); MEAN CELL VOLUME 89.5 fl (80-96); MEAN PLT VOLUME 9.7 fl (7.5-11.1); PLATELET COUNT 202 10^3/uL (134-434); RBC 3.97 M/mm3 (3.60-5.2); RDW 14.3 % (11.6-15.6); WHITE BLOOD COUNT 9.2 K/mm3 (4.0-10.0)
[2022-10-07 10:23] LABS: BLOOD UREA NITROGEN 26.4 mg/dL (7-18)
[2022-10-07 10:24] LABS: ALBUMIN 3.3 g/dl (3.4-5.0)
[2022-10-07 10:25] LABS: CALCIUM 8.6 mg/dL (8.5-10.1)
[2022-10-07 10:26] LABS: CREATININE 1.3 mg/dL (0.55-1.3)
[2022-10-07 10:28] LABS: BILIRUBIN,TOTAL 0.4 mg/dL (0.2-1); TOT PROT 6.5 g/dl (6.4-8.2)
[2022-10-07] MEDS: ENOXAPARIN NA (PORCINE) 30 MG/0.3 ML DISP.SYRIN SQ SCH (12:06)
[2022-10-07 18:37] VITALS: RESP 20
[2022-10-07] MEDS: ATORVASTATIN CA 80 MG TABLET (FP) PO SCH (21:27)
[2022-10-08] MEDS: oxyCODONE HCL 5 MG TABLET PO SCH ×3 (02:20→13:11)
[2022-10-08] MEDS: ACETAMINOPHEN 325 MG TABLET (FP) PO SCH ×7 (02:22→18:35)
[2022-10-08] MEDS: ENOXAPARIN NA (PORCINE) 30 MG/0.3 ML DISP.SYRIN SQ SCH (09:01)
[2022-10-08 14:34] VITALS: BP 127/59; PULSE 78; TEMP 985
== END 2022-10-08 19:42 ==
LOC: JER 10:52 → JERBED 16:03 → J6S 22:01
PROVIDERS: ADMIT Internal Medicine; ATTEND Internal Medicine
PROC: 3E023GC Introduction of Other Therapeutic Substance into Muscle, Percutaneous Approach (ICD-10-PCS; principal; 2022-10-05)
PROC: 3E033NZ Introduction of Analgesics, Hypnotics, Sedatives into Peripheral Vein, Percutaneous Approach (ICD-10-PCS; 2022-10-05)
PROC: 3E0337Z Introduction of Electrolytic and Water Balance Substance into Peripheral Vein, Percutaneous Approach (ICD-10-PCS; 2022-10-05)
DX: S52.609A Unspecified fracture of lower end of unspecified ulna, initial encounter for closed fracture (principal); Y92.89 Other specified places as the place of occurrence of the external cause; W18.39XA Other fall on same level, initial encounter; I10 Essential (primary) hypertension; R55 Syncope and collapse; E78.5 Hyperlipidemia, unspecified; F41.9 Anxiety disorder, unspecified; I34.1 Nonrheumatic mitral (valve) prolapse; R01.1 Cardiac murmur, unspecified; Y93.89 Activity, other specified
CPT/HCPCS: 0241U-QW; 36415; 70450-TC; 70486-TC; 71045-TC-FY; 72125-TC; 72170-TC-FY; 73070-TC-LT-FY; 73090-TC-LT-FY; 73110-TC-LT-FY; 73130-TC-LT-FY; 73560-TC-LT-FY; 80053; 81003; 83735; 84100; 84484; 85025; 85027; 85610; 85730; 87086; 93005; 93010; 93225; 93226; 93306-TC; 96361; 96372; 96374; 96375; 96376; 97116-GP; 97162-GP; 99285-25; G0378